=== PATIENT | female | born 1990 | race African-American/Black ===

== ENCOUNTER 2022-12-29 19:17 | Emergency (ER) | payer MEDICAID ==
[~2022-12-29] VITALS: Ht 149.9 cm; Wt 72.0 kg
[2022-12-29] MEDS ORDERED: IBUPROFEN 800 MG TAB PO ONE (19:45)
[2022-12-29] MEDS ORDERED: IBUP800T27 PO (23:20)
[2022-12-29] MEDS ORDERED: AMOX-277 PO (23:20)
[2022-12-29] MEDS ORDERED: KETOROLAC TROMETH 60MG/2ML VIAL IM ONE (23:30)
[2022-12-29] MEDS ORDERED: BENZOCAINE (DENTAL) 20 % SPRAY 60ML MT ONE (23:30)
[2022-12-30 00:15] VITALS: BP 132/75
== END 2022-12-30 07:58 | disposition home or self-care (01) ==
LOC: ER 19:17
DX: K04.7 Periapical abscess without sinus (principal); I10 Essential (primary) hypertension; Z79.1 Long term (current) use of non-steroidal anti-inflammatories (NSAID); Z79.2 Long term (current) use of antibiotics
CPT/HCPCS: 96372; 99283; J1885

== ENCOUNTER 2024-02-10 14:38 | Emergency (ER) | payer MEDICAID ==
[~2024-02-10] VITALS: Ht 160 cm; Wt 88.0 kg
[~2024-02-10 14:38] MED LIST: AMOX875T4 PO; IBUP-1456 PO
[2024-02-10 15:45] LABS: Basophils # (auto) 0 10 ^3/uL (0-0.2); Basophils % (auto) 0.4 % (0.0-2.0); Eosinophils # (auto) 0 10 ^3/uL (0-0.8); Eosinophils % (auto) 0.7 % (0.0-7.0); Hematocrit 38.6 % (36.0-46.0); Hemoglobin 12.4 g/dL (12.2-16.2); Lymphocytes # (auto) 1.4 10 ^3/uL (0.4-5.4); Lymphocytes % (auto) 19.5 % (10.0-50.0); Mean Corpuscular Hemoglobin 25.9 pg (28.0-32.0); Mean Corpuscular Volume 80.9 fL (80.0-100.0); Monocytes # (auto) 0.5 10 ^3/uL (0-1.3); Monocytes % (auto) 6.3 % (0.0-12.0); Neutrophils # (auto) 5.4 10 ^3/uL (1.6-8.6); Neutrophils % (auto) 73.1 % (37.0-80.0); Red Blood Cells 4.77 10^6/uL (4.0-5.20); Red Cell Distribution Width 15.9 % (11.8-14.3); White Blood Cell 7.4 10^3/uL (4.4-10.8)
[2024-02-10 16:30] LABS: Urine Bacteria None Seen /hpf (None Seen)
[2024-02-10 16:49] LABS: Urine Blood Negative /uL (Negative); Urine Clarity Clear (Clear); Urine Color Light-Yellow (Yellow); Urine Mucus FEW (None Seen); Urine Protein, UAD Negative (Negative); Urine Specific Gravity 1.023 (1.001-1.035); Urine Urobilinogen Normal (Negative); Urine WBC 6 /hpf (0 - 5)
[2024-02-10 17:55] VITALS: BP 148/96; PULSE 75; RESP 18; TEMP 98.9; O2SAT 99
== END 2024-02-10 17:56 | disposition home or self-care (01) ==
LOC: ER 14:38
DX: N93.8 Other specified abnormal uterine and vaginal bleeding (principal); R10.2 Pelvic and perineal pain; I10 Essential (primary) hypertension; Z98.51 Tubal ligation status
CPT/HCPCS: 36415; 81001; 84702; 85025